=== PATIENT | female | born 1980 | race Caucasian/White ===

== ENCOUNTER 2017-01-24 12:08 | Emergency (ER) | payer SELFPAY ==
[~2017-01-24] VITALS: Ht 162.6 cm; Wt 75.6 kg
[2017-01-24] MEDS ORDERED: IBUPROFEN 200 MG TABLET ONE (12:20)
[2017-01-24] MEDS ORDERED: IBUPROFEN 200 MG TABLET PO ONE (12:30)
[2017-01-24 12:49] VITALS: BP 101/66
== END 2017-01-24 12:51 | disposition home or self-care (01) ==
LOC: ED 12:45
DX: S00.11XA Contusion of right eyelid and periocular area, initial encounter (principal); V49.69XA Unspecified car occupant injured in collision with other motor vehicles in traffic accident, initial encounter; Y93.89 Activity, other specified; Y99.8 Other external cause status; Y92.488 Other paved roadways as the place of occurrence of the external cause
CPT/HCPCS: 99283